=== PATIENT | female | born 1975 | race Caucasian/White ===

== ENCOUNTER 2020-11-02 23:31 | Emergency (ER) | payer OTHER ==
[~2020-11-02] VITALS: Ht 154.9 cm; Wt 86.2 kg
[2020-11-03] MEDS ORDERED: KETOROLAC TROMETH 30 MG/ML 1ML VIAL IV ONE
[2020-11-03] MEDS ORDERED: fentaNYL CITRATE 100 MCG/2 ML VL IV ONE
[2020-11-03] MEDS ORDERED: HYDROcodone-ACET 5/325MG TAB PO ONE (02:30)
[2020-11-03 03:05] VITALS: BP 110/65
== END 2020-11-03 02:18 | disposition home or self-care (01) ==
LOC: ER 23:33
DX: S52.614A Nondisplaced fracture of right ulna styloid process, initial encounter for closed fracture (principal); S52.501A Unspecified fracture of the lower end of right radius, initial encounter for closed fracture; F17.210 Nicotine dependence, cigarettes, uncomplicated; W18.39XA Other fall on same level, initial encounter; Y93.89 Activity, other specified; Y92.89 Other specified places as the place of occurrence of the external cause; Y99.8 Other external cause status
CPT/HCPCS: 29125; 73090; 73110; 96374; 96375; 99284; J1885; J3010